=== PATIENT | male | born 1930 | race African-American/Black ===

== ENCOUNTER 2017-03-24 10:19 | Outpatient (CLI) | payer OTHER ==
[2017-03-24 17:00] LABS: ALT (SGPT) 13 U/L (8-55); AST (SGOT) 20 U/L (5-34); Alkaline Phosphatase 86 U/L (40-150); Anion Gap 8 mmol/L (10-20); BUN (Urea Nitrogen) 14 mg/dL (8.4-25.7); Bilirubin, Total 1.2 mg/dL (0.2-1.2); Calc. Creatinine Clearance 0 mL/min (70-130); Calcium 9.3 mg/dL (7.8-10.44); Carbon Dioxide 30 mmol/L (23-31); Cardiac Risk 2.1 (Less than 4.5); Chloride 108 mmol/L (98-107); Cholesterol 150 mg/dl (< 200 Desired); Estimated GFR-MDRD 48; Globulin 2.6 g/dL (2.4-3.5); Glucose 88 mg/dL (83-110); HDL Cholesterol 70 mg/dL (>60 Neg Risk); LDL Cholesterol, Calculated 64 mg/dL; Potassium 4.3 mmol/L (3.5-5.1); Protein, Total 6.6 g/dL (5.8-8.1); Sodium 142 mmol/L (136-145); Triglycerides 79 mg/dL (Less than 150)
[2017-03-24 17:14] LABS: Free T4 (Free Thyroxine) 0.78 ng/dL (0.70-1.48); Thyroid Stimulating Hormone 1.8133 uIU/mL (0.35-4.94)
[2017-03-24 17:21] LABS: #Basophils 0.1 thou/uL (0.0-0.2); #Eosinphils 0.1 thou/uL (0.0-0.7); #Monocytes 0.3 thou/uL (0.11-0.59); #Neutrophils 1.8 thou/uL (1.40-6.50); %Lymphocytes 34.5 % (21.0-51.0); %Monocytes 9.4 % (0.0-10.0); Hemoglobin 13.1 g/dL (14.0-18.0); Mean Corpuscular HGB CONC 33.9 g/dL (32.0-36.0); Mean Corpuscular Hemoglobin 33.6 pg (27.0-31.0); Platelet Count 106 thou/uL (130-400); RBC Distribution Width 11.6 % (11.5-14.5); Red Blood Cell (RBC) Count 3.91 mill/uL (4.70-6.10); White Blood Cell (WBC) Count 3.6 thou/uL (4.8-10.8)
[2017-03-24 17:28] LABS: PLT Morphology Comment Appears Decreased
[2017-03-24 17:30] LABS: Manual Diff?? NO
[2017-03-24 17:32] LABS: MDiff Complete? YES
== END 2017-03-24 10:20 | disposition home or self-care (01) ==
LOC: LABLEX 10:19
PROVIDERS: ATTEND Nurse Practitioner
DX: E05.90 Thyrotoxicosis, unspecified without thyrotoxic crisis or storm (principal); E78.2 Mixed hyperlipidemia; I48.91 Unspecified atrial fibrillation
CPT/HCPCS: 80053; 80061; 84439; 84443; 85025

== ENCOUNTER 2017-06-13 12:44 | Outpatient (CLI) | payer MEDICARE, OTHER ==
[2017-06-13 18:16] LABS: #Eosinphils 0.1 thou/uL (0.0-0.7); #Lymphocytes 1.1 thou/uL (1.20-3.40); #Monocytes 0.5 thou/uL (0.11-0.59); #Neutrophils 1.6 thou/uL (1.40-6.50); %Basophils 0.4 % (0.0-1.0); %Eosinophils 2.9 % (0.0-10.0); %Lymphocytes 33.7 % (21.0-51.0); %Monocytes 14.5 % (0.0-10.0); %Neutrophils 48.5 % (42.0-75.0); Hemoglobin 14.2 g/dL (14.0-18.0); Mean Corpuscular HGB CONC 34.5 g/dL (32.0-36.0); Mean Corpuscular Hemoglobin 35.6 pg (27.0-31.0); Mean Platelet Volume 7.7 fL (7.4-10.4); Platelet Count 98 thou/uL (130-400); RBC Distribution Width 12.3 % (11.5-14.5); Red Blood Cell (RBC) Count 3.97 mill/uL (4.70-6.10); White Blood Cell (WBC) Count 3.4 thou/uL (4.8-10.8)
[2017-06-13 18:24] LABS: ALT (SGPT) 11 U/L (8-55); AST (SGOT) 21 U/L (5-34); Albumin 4.1 g/dL (3.4-4.8); Alkaline Phosphatase 87 U/L (40-150); Anion Gap 11 mmol/L (10-20); BUN (Urea Nitrogen) 16 mg/dL (8.4-25.7); Bilirubin, Total 1.8 mg/dL (0.2-1.2); Calc. Creatinine Clearance 0 mL/min (70-130); Carbon Dioxide 28 mmol/L (23-31); Chloride 104 mmol/L (98-107); Estimated GFR-MDRD 55; Glucose 85 mg/dL (83-110); Potassium 3.7 mmol/L (3.5-5.1); Protein, Total 7.1 g/dL (5.8-8.1); Sodium 139 mmol/L (136-145)
--- NOTE | 2017-06-14 07:37 | RAD ---
CHEST TWO VIEWS: Date: 06-13-17 Comparison: 04-16-16 from [facility] FINDINGS: There has been no significant interval change. The heart size is stable and there are no congestive c hanges or pleural effusions. The lungs are clear. There is no sign of pneumonia. The lungs are mildly hyperexpanded as usual. A bipolar cardiac pacer is in place. IMPRESSION: No acute thoracic findings. POS: HOME
== END 2017-06-13 12:45 | disposition home or self-care (01) ==
LOC: BURRAD 12:44
PROVIDERS: ATTEND Nurse Practitioner
DX: J20.9 Acute bronchitis, unspecified (principal)
CPT/HCPCS: 36415; 71020; 80053; 85025

== ENCOUNTER 2017-06-15 11:18 | Emergency (ER) | payer MEDICARE, OTHER ==
[2017-06-15] MEDS ORDERED: cefTRIAXone\\ROCEPHIN 1 GM VIAL ONE (11:47)
[2017-06-15] MEDS ORDERED: methylPREDNISolone Sod Succ/PF 125 MG/2 ML VIAL ONE (11:47)
[2017-06-15 11:52] LABS: #Eosinphils 0.1 thou/uL (0.0-0.7); #Lymphocytes 1.1 thou/uL (1.20-3.40); #Monocytes 0.4 thou/uL (0.11-0.59); #Neutrophils 2.1 thou/uL (1.40-6.50); %Basophils 0.8 % (0.0-1.0); %Eosinophils 2.4 % (0.0-10.0); %Lymphocytes 29.5 % (21.0-51.0); %Neutrophils 57.3 % (42.0-75.0); Hemoglobin 13.1 g/dL (14.0-18.0); Mean Corpuscular HGB CONC 35.3 g/dL (32.0-36.0); Mean Corpuscular Hemoglobin 34.9 pg (27.0-31.0); Mean Corpuscular Volume 98.7 fl (80.0-94.0); Mean Platelet Volume 6.8 fL (7.4-10.4); Platelet Count 98 thou/uL (130-400); RBC Distribution Width 11.7 % (11.5-14.5); Red Blood Cell (RBC) Count 3.77 mill/uL (4.70-6.10); White Blood Cell (WBC) Count 3.7 thou/uL (4.8-10.8)
[2017-06-15] MEDS ORDERED: Sterile Water 100 ML ONE (12:04)
[2017-06-15 12:06] LABS: Anion Gap 14 mmol/L (10-20); BUN (Urea Nitrogen) 16 mg/dL (8.4-25.7); Calc. Creatinine Clearance 0 mL/min (70-130); Calcium 8.8 mg/dL (7.8-10.44); Carbon Dioxide 25 mmol/L (23-31); Chloride 107 mmol/L (98-107); Estimated GFR-MDRD 59; Glucose 79 mg/dL (83-110); Potassium 4.1 mmol/L (3.5-5.1); Sodium 142 mmol/L (136-145)
[2017-06-15 12:10] LABS: CKMB 2.1 ng/mL (0-6.6); Troponin I 0.022 ng/mL (< 0.028)
--- NOTE | 2017-06-15 19:32 | RAD ---
PORTABLE CHEST 06/15/17 An AP portable film at 1153 is compared with a 06/13/17 study. The heart is probably normal in size for an AP film. A bipolar cardiac pacer remains in place. There are no congestive findings, pleural effusions, or other acute changes. The lungs are clear. There is no evidence of pneumonia. The trachea is midline. IMPRESSION: No acute thoracic finding. POS: HOME
== END 2017-06-15 12:25 | disposition home or self-care (01) ==
LOC: BURERS 11:18
DX: J20.9 Acute bronchitis, unspecified (principal); I10 Essential (primary) hypertension; J44.9 Chronic obstructive pulmonary disease, unspecified; Z79.899 Other long term (current) drug therapy
CPT/HCPCS: 71010; 80048; 82553; 83880; 84484; 85025; 94640; 96374; 96375; J0696; J2930; J7620

== ENCOUNTER 2017-07-31 11:56 | Emergency (ER) | payer MEDICARE, OTHER | END 2017-07-31 12:50 | disposition home or self-care (01) | LOC: BURERS 11:56 | DX: T83.018A Breakdown (mechanical) of other urinary catheter, initial encounter (principal); R33.9 Retention of urine, unspecified; I10 Essential (primary) hypertension; J44.9 Chronic obstructive pulmonary disease, unspecified | CPT/HCPCS: 99283 ==

== ENCOUNTER 2017-08-17 11:38 | Emergency (ER) | payer MEDICARE, OTHER ==
[2017-08-17 11:59] LABS: Bilirubin Small (Negative); Blood, Urine Large (Negative); Clarity Turbid (Clear); Glucose, Urine (Dipstick) Negative (Negative); Leukocyte Small (Negative); Nitrite Positive (Negative); Protein, Urine (Dipstick) > or equal to 300 mg/dL (Neg-Trace); Specific Gravity, Urine 1.015 (1.005-1.030)
[2017-08-17 12:11] LABS: Bacteria/HPF 3+ HPF (None Seen); Crystals/HPF 1+ AMORPH URATES HPF (Negative); RBC/HPF GREATER THAN 50-TNTC HPF (0-3); Squamous Epithelial 0-3 HPF (0-3)
[2017-08-17] MEDS ORDERED: Sulfameth/Trimethoprim DS 800-160mg TAB ONE (12:18)
== END 2017-08-17 12:21 | disposition home or self-care (01) ==
LOC: BURERS 11:38
DX: N30.01 Acute cystitis with hematuria (principal); I10 Essential (primary) hypertension; J45.909 Unspecified asthma, uncomplicated
CPT/HCPCS: 51700; 81003; 81015; 87077; 87086; 87186

== ENCOUNTER 2017-08-30 13:41 | Emergency (ER) | payer MEDICARE, OTHER | END 2017-08-30 15:12 | disposition home or self-care (01) | LOC: BURERS 13:41 | DX: Z46.6 Encounter for fitting and adjustment of urinary device (principal); I10 Essential (primary) hypertension; J44.9 Chronic obstructive pulmonary disease, unspecified | CPT/HCPCS: 99283 ==

== ENCOUNTER 2017-09-03 13:38 | Emergency (ER) | payer MEDICARE, OTHER ==
[2017-09-03 14:36] LABS: AST (SGOT) 16 U/L (5-34); Albumin 3.9 g/dL (3.4-4.8); Anion Gap 11 mmol/L (10-20); Calc. Creatinine Clearance 0 mL/min (70-130); Calcium 8.9 mg/dL (7.8-10.44); Carbon Dioxide 25 mmol/L (23-31); Chloride 111 mmol/L (98-107); Estimated GFR-MDRD 65; Glucose 110 mg/dL (83-110); Potassium 3.7 mmol/L (3.5-5.1); Protein, Total 6.4 g/dL (5.8-8.1); Sodium 143 mmol/L (136-145)
[2017-09-03 14:43] LABS: #Basophils 0.1 thou/uL (0.0-0.2); #Eosinphils 0.2 thou/uL (0.0-0.7); #Monocytes 0.4 thou/uL (0.11-0.59); #Neutrophils 2.2 thou/uL (1.40-6.50); %Basophils 1.1 % (0.0-1.0); %Lymphocytes 35.8 % (21.0-51.0); %Monocytes 8.2 % (0.0-10.0); %Neutrophils 50.8 % (42.0-75.0); Hemoglobin 12.5 g/dL (14.0-18.0); MDiff Complete? YES; Mean Corpuscular HGB CONC 36.1 g/dL (32.0-36.0); Mean Corpuscular Hemoglobin 35.3 pg (27.0-31.0); Mean Corpuscular Volume 97.7 fL (80.0-94.0); Mean Platelet Volume 6.9 fL (7.4-10.4); Platelet Count 104 thou/uL (130-400); RBC Distribution Width 12.5 % (11.5-14.5); Red Blood Cell (RBC) Count 3.56 mill/uL (4.70-6.10); White Blood Cell (WBC) Count 4.4 thou/uL (4.8-10.8)
[2017-09-03 15:31] LABS: Bilirubin Negative (Negative); Blood, Urine Large (Negative); Clarity Slightly Cloudy (Clear); Glucose, Urine (Dipstick) Negative (Negative); Leukocyte Large (Negative); Nitrite Negative (Negative); Protein, Urine (Dipstick) 100 mg/dL (Neg-Trace); Urobilinogen 0.2 mg/dL (0.2-1.0)
[2017-09-03 15:33] LABS: Bacteria/HPF 1+ HPF (None Seen); Crystals/HPF None Seen HPF (Negative); Hyaline Casts/LPF NONE SEEN LPF (0-3 Hyaline); Other Casts/LPF None Seen LPF (0-3 Hyaline); Oval Fat Bodies/HPF None Seen HPF (None Seen); RBC/HPF 21-50 HPF (0-3); Renal Epithelial None Seen HPF (0-3); Sperm/HPF None Seen HPF (None Seen); Transitional Epithelial NONE SEEN HPF (0-3); Trichomonas/HPF None Seen HPF (None Seen); WBC/HPF 21-50 HPF (0-3); Yeast-All Forms None Seen HPF (None Seen)
[2017-09-03] MEDS ORDERED: Lidocaine 1% 20 ML MDV ONE (16:34)
[2017-09-03] MEDS ORDERED: cefTRIAXone\\ROCEPHIN 1 GM VIAL ONE (16:35)
[2017-09-03 22:44] LABS: #Lymphocytes 1.6 thou/uL (1.20-3.40)
== END 2017-09-03 16:30 | disposition home or self-care (01) ==
LOC: EDBD → BURERS 13:38
DX: N39.0 Urinary tract infection, site not specified (principal); I10 Essential (primary) hypertension; J44.9 Chronic obstructive pulmonary disease, unspecified
CPT/HCPCS: 80051; 81003; 81015; 82040; 82310; 82565; 82947; 84155; 84450; 85025; 87077; 87086; 87186; 96372; J0696; J2001

== ENCOUNTER 2017-11-15 21:09 | Emergency (ER) | payer MEDICARE, OTHER ==
[2017-11-15 22:19] LABS: Bilirubin Small (Negative); Blood, Urine Large (Negative); Clarity Cloudy (Clear); Glucose, Urine (Dipstick) Negative (Negative); Leukocyte Large (Negative); Nitrite Negative (Negative); Protein, Urine (Dipstick) > or equal to 300 mg/dL (Neg-Trace); Specific Gravity, Urine 1.025 (1.005-1.030)
[2017-11-15 22:27] LABS: ALT (SGPT) 9 U/L (8-55); AST (SGOT) 15 U/L (5-34); Albumin 3.5 g/dL (3.4-4.8); Alkaline Phosphatase 80 U/L (40-150); Anion Gap 14 mmol/L (10-20); BUN (Urea Nitrogen) 18 mg/dL (8.4-25.7); Bilirubin, Total 0.9 mg/dL (0.2-1.2); Calc. Creatinine Clearance 0 mL/min (70-130); Calcium 8.7 mg/dL (7.8-10.44); Carbon Dioxide 24 mmol/L (23-31); Chloride 109 mmol/L (98-107); Estimated GFR-MDRD 53; Globulin 2.8 g/dL (2.4-3.5); Glucose 158 mg/dL (83-110); Protein, Total 6.3 g/dL (5.8-8.1); Sodium 143 mmol/L (136-145)
[2017-11-15 22:27] LABS: Bacteria/HPF 3+ HPF (None Seen); RBC/HPF 21-50 HPF (0-3); Squamous Epithelial 0-3 HPF (0-3)
[2017-11-15 22:28] LABS: Crystals/HPF 1+ CA OXALATE HPF (Negative)
[2017-11-15 22:28] LABS: CKMB 0.8 ng/mL (0-6.6); Troponin I 0.013 ng/mL (< 0.028)
[2017-11-15 22:36] LABS: #Basophils 0.1 thou/uL (0.0-0.2); #Eosinphils 0.4 thou/uL (0.0-0.7); #Lymphocytes 1.3 thou/uL (1.20-3.40); #Monocytes 0.5 thou/uL (0.11-0.59); #Neutrophils 1.8 thou/uL (1.40-6.50); %Basophils 1.6 % (0.0-1.0); %Eosinophils 9.6 % (0.0-10.0); %Lymphocytes 32.1 % (21.0-51.0); %Monocytes 11.5 % (0.0-10.0); %Neutrophils 45.2 % (42.0-75.0); Hemoglobin 12.1 g/dL (14.0-18.0); Mean Corpuscular HGB CONC 37.5 g/dL (32.0-36.0); Mean Corpuscular Hemoglobin 34.3 pg (27.0-31.0); Mean Corpuscular Volume 91.4 fl (80.0-94.0); Mean Platelet Volume 5.6 fL (7.4-10.4); PLT Morphology Comment Appears Decreased; Platelet Count 101 thou/uL (130-400); RBC Distribution Width 11.7 % (11.5-14.5); RBC Morphology Normal; Red Blood Cell (RBC) Count 3.52 mill/uL (4.70-6.10)
--- NOTE | 2017-11-15 22:40 | CT ---
CT OF ABDOMEN AND PELVIS PERFORMED WITHOUT CONTRAST ENHANCEMENT: 11/15/17 HISTORY: Lower abdominal and suprapubic pain. COMPARISON: None available. Lung bases are clear of infiltrates. A pacemaker is present. Some small hypodensities within the righ t and left lobes of the liver too small to characterize, possibly small cysts. The spleen and pancrea s regions are unremarkable. Gallbladder has been removed. Some extrahepatic biliary ductal prominence probably on the basis of the cholecystectomy. Right and left adrenal glands are normal. Hypodensity within the left kidney appears to represent a c yst. No obstruction or renal calculi. No significant periaortic or mesenteric adenopathy. The aorta i s tortuous particularly at the level of the common iliac arteries. There is no significant periaortic or mesenteric lymphadenopathy noted. Colonic diverticulosis is noted, somewhat more prominent in the descending colon and sigmoid region. CT OF PELVIS PERFORMED WITHOUT CONTRAST ENHANCEMENT: Appendix is normal. A suprapubic catheter is in place. Prostate is enlarged. No adenopathy or mass. IMPRESSION: 1. Normal appendix. 2. No evidence of renal or ureteral calculi. 3. Hypodensities within the liver, statistically most likely cysts. 4. Colonic diverticulosis. 5. Suprapubic catheter in place with enlarged prostate. POS: [facility]
[2017-11-15] MEDS ORDERED: Sulfameth/Trimethoprim DS 800-160mg TAB ONE (22:47)
== END 2017-11-15 22:50 | disposition home or self-care (01) ==
LOC: BURERS 21:09
DX: N39.0 Urinary tract infection, site not specified (principal); I10 Essential (primary) hypertension; J44.9 Chronic obstructive pulmonary disease, unspecified; Z79.899 Other long term (current) drug therapy; Z79.82 Long term (current) use of aspirin
CPT/HCPCS: 36415; 74176; 80053; 81003; 81015; 82553; 84484; 85025; 93005

== ENCOUNTER 2017-12-11 10:30 | Emergency (ER) | payer MEDICARE, OTHER ==
[2017-12-11 11:03] LABS: Eosinophils 2 % (0-10); Hemoglobin 12.5 g/dL (14.0-18.0); Lymphocytes 40 % (21-51); MDiff Complete? YES; Mean Corpuscular HGB CONC 36.2 g/dL (32.0-36.0); Mean Corpuscular Hemoglobin 33.1 pg (27.0-31.0); Mean Corpuscular Volume 91.4 fl (80.0-94.0); Mean Platelet Volume 6.3 fL (7.4-10.4); Monocytes 10 % (0-10); Neutrophil 48 % (42-75); PLT Morphology Comment PT HAS HX OF LOW PLATELET COUNT; Platelet Count 83 thou/uL (130-400); RBC Distribution Width 12.3 % (11.5-14.5); Red Blood Cell (RBC) Count 3.76 mill/uL (4.70-6.10); White Blood Cell (WBC) Count 3.6 thou/uL (4.8-10.8)
[2017-12-11 11:13] LABS: ALT (SGPT) 9 U/L (8-55); AST (SGOT) 14 U/L (5-34); Albumin 3.9 g/dL (3.4-4.8); Alkaline Phosphatase 74 U/L (40-150); Anion Gap 13 mmol/L (10-20); BUN (Urea Nitrogen) 18 mg/dL (8.4-25.7); Bilirubin, Total 1.7 mg/dL (0.2-1.2); Calc. Creatinine Clearance 0 mL/min (70-130); Calcium 9.1 mg/dL (7.8-10.44); Carbon Dioxide 25 mmol/L (23-31); Chloride 112 mmol/L (98-107); Estimated GFR-MDRD 53; Globulin 2.7 g/dL (2.4-3.5); Glucose 107 mg/dL (83-110); Potassium 3.7 mmol/L (3.5-5.1); Protein, Total 6.6 g/dL (5.8-8.1); Sodium 146 mmol/L (136-145); Troponin I 0.017 ng/mL (< 0.028)
--- NOTE | 2017-12-11 13:32 | RAD ---
PORTABLE CHEST: Date: 12/11/17 An AP portable film at 1030 hours is compared with the 06/15/17 study. FINDINGS: The heart size is unchanged. There is no vascular congestion, edema, or pleural effusion. A bipolar c ardiac pacer remains in place. The lungs are clear. The aorta is tortuous as usual. IMPRESSION: No acute thoracic findings. POS: HOME
== END 2017-12-11 11:43 | disposition short-term general hospital (02) ==
LOC: BURERS 10:30
DX: R06.01 Orthopnea (principal); I10 Essential (primary) hypertension; J44.9 Chronic obstructive pulmonary disease, unspecified; I48.91 Unspecified atrial fibrillation; Z79.82 Long term (current) use of aspirin; Z79.899 Other long term (current) drug therapy
CPT/HCPCS: 36415; 71045; 80053; 82553; 83880; 84484; 85025; 85379; 93005

== ENCOUNTER 2017-12-31 15:16 | Emergency (ER) | payer MEDICARE, OTHER ==
[2017-12-31 16:27] LABS: INR-International Normal Ratio 1.2; PTT 30.4 SEC (22.9-36.1); Prothrombin Time 15.6 SEC (12.0-14.7)
[2017-12-31 16:31] LABS: #Eosinphils 0.2 thou/uL (0.0-0.7); #Lymphocytes 1.1 thou/uL (1.20-3.40); #Monocytes 0.3 thou/uL (0.11-0.59); #Neutrophils 1.7 thou/uL (1.40-6.50); %Basophils 1.1 % (0.0-1.0); %Eosinophils 4.9 % (0.0-10.0); %Lymphocytes 33.7 % (21.0-51.0); %Monocytes 9.4 % (0.0-10.0); %Neutrophils 50.8 % (42.0-75.0); Hemoglobin 11.6 g/dL (14.0-18.0); Mean Corpuscular HGB CONC 36.7 g/dL (32.0-36.0); Mean Corpuscular Hemoglobin 33.3 pg (27.0-31.0); Mean Corpuscular Volume 90.6 fL (78.0-98.0); Mean Platelet Volume 5.1 fL (7.4-10.4); Platelet Count 82 thou/uL (130-400); RBC Distribution Width 12.1 % (11.5-14.5); Red Blood Cell (RBC) Count 3.49 mill/uL (4.70-6.10); White Blood Cell (WBC) Count 3.4 thou/uL (4.8-10.8)
[2017-12-31 16:32] LABS: ALT (SGPT) 9 U/L (8-55); AST (SGOT) 17 U/L (5-34); Albumin 3.7 g/dL (3.4-4.8); Alkaline Phosphatase 70 U/L (40-150); Anion Gap 13 mmol/L (10-20); BUN (Urea Nitrogen) 13 mg/dL (8.4-25.7); Bilirubin, Total 1.5 mg/dL (0.2-1.2); Calc. Creatinine Clearance 0 mL/min (70-130); Calcium 8.8 mg/dL (7.8-10.44); Carbon Dioxide 25 mmol/L (23-31); Chloride 110 mmol/L (98-107); Estimated GFR-MDRD 63; Globulin 2.4 g/dL (2.4-3.5); Glucose 94 mg/dL (83-110); Potassium 3.8 mmol/L (3.5-5.1); Protein, Total 6.1 g/dL (5.8-8.1); Sodium 144 mmol/L (136-145)
[2017-12-31 16:33] LABS: MDiff Complete? YES; PLT Morphology Comment Appears Decreased
--- NOTE | 2017-12-31 18:16 | CT ---
CT ABDOMEN AND PELVIS WITH CONTRAST 12/31/[address] of the abdomen and pelvis was performed for evaluation of left lower quadrant pain. Comparison is mad with the 11/15/17 study. Axial slices were acquired after giving IV contrast. oral co ntrast was deferred by request. Coronal and sagittal reconstructions were done afterwards. The lung bases are clear. The liver and spleen are both normal in size. There are several subcentimet er lucencies in the liver that are most likely cysts. They have not changed much over time. The pancr eas and adrenal glands appear normal. There has been a prior cholecystectomy. The kidneys show no sig n of obstruction. There is a 2.5 cm parapelvic cyst of the left kidney. The abdominal aorta shows no aneurysmal dilation. Some calcification is seen within it. There is a moderate amount of fecal materi al in the colon, and diverticula are seen scattered throughout. There were no convincing findings of diverticulitis at the moment. Regarding the left lower quadrant, the area was mainly remarkable for d iverticulosis, but no wall thickening or inflammatory changes were appreciated around bowel. No free air or free fluid was seen. CT of the pelvis shows a suprapubic catheter in placed and a markedly enlarged prostate. Some of the increased density in the bladder is thought to be the beginnings of excretion of contrast by the kidn eys. I cannot exclude prostatic mass. No free fluid or inflammatory change was detected in the pelvic region. IMPRESSION: No acute abdominal or pelvic findings to explain the patient's symptoms. The scan is minimally diffe rent than the 11/15/17 study. POS: HOME
== END 2017-12-31 18:02 | disposition short-term general hospital (02) ==
LOC: EDBD → BURERS 15:16
DX: K92.2 Gastrointestinal hemorrhage, unspecified (principal); N39.0 Urinary tract infection, site not specified; I10 Essential (primary) hypertension; J44.9 Chronic obstructive pulmonary disease, unspecified; I48.91 Unspecified atrial fibrillation; Z79.899 Other long term (current) drug therapy; Z79.82 Long term (current) use of aspirin
CPT/HCPCS: 74177; 80053; 82274; 83605; 85025; 85610; 85730; 94760; 96360